=== PATIENT | male | born 1960 | race Caucasian/White ===

== ENCOUNTER 2023-09-17 11:35 | Outpatient (CLI) | payer OTHER ==
--- NOTE | 2023-09-18 19:47 | XRAY Report ---
PROCEDURE: Chest 2V INDICATIONS: CHEST PAIN TECHNIQUE: 2 views of the chest were obtained. COMPARISON: None. FINDINGS: Surgical changes and devices: None. Lungs and pleura: No pleural effusions or pneumothorax. Lungs are clear. Mediastinum: Mediastinal contours appear normal. Heart size is normal. Bones and chest wall: No suspicious bony lesions. Overlying soft tissues appear unremarkable. IMPRESSION: Normal two-view chest x-ray Reviewed by: Vasiliy Sheppard MD on 09/18/2023 6:45 PM [facility] Approved by: Vasiliy Sheppard MD on 09/18/2023 6:45 PM [facility] Station ID: [id number]
== END 2023-09-17 11:36 | disposition home or self-care (01) ==
LOC: DI 11:35
PROVIDERS: ATTEND Internal Medicine
DX: R07.9 Chest pain, unspecified (principal)

== ENCOUNTER 2023-10-06 19:38 | Emergency (ER) | payer OTHER ==
[2023-10-06 20:31] VITALS: BP 148/88; O2SAT 100
[2023-10-06] MEDS: LIDOCAINE 1%-EPI 1:100000 20 ML MDV SUBQ STA (21:31)
[2023-10-06] MEDS: KETOROLAC 15 MG/ML VIAL IVP STA (22:00)
[2023-10-06] MEDS: LIDOCAINE-EPINEPH-TETRACAINE 3 ML SYRINGE TOP STA (22:05)
--- NOTE | 2023-10-06 22:32 | ED Physician Documentation ---
History of Present Illness - Stated complaint Stated Complaint: FOREHEAD LAC - Chief complaint Chief Complaint: Laceration - History obtained from History obtained from: Patient - History of Present Illness Timing: Prior to arrival - Additonal information Additional information: Patient is a 62-year-old male coming into the emergency department with abrasion to forehead. Patient scraped his forehead on a cupboard and had persistent bleeding prior to coming to the emergency department. Patient did not hit his head or lose consciousness. Patient's last tetanus was within the last 5 years. He is not on any blood thinners. PD PAST MEDICAL HISTORY - Past Medical History Past Medical History: Yes Cardiovascular: High cholesterol Respiratory: None Neuro: None Endocrine/Autoimmune: None GI: None : None HEENT: None Psych: None Musculoskeletal: None Derm: None - Past Surgical History Past Surgical History: No - Present Medications Home Medications: Ambulatory Orders Medication Instructions Recorded Confirmed amLODIPine [Norvasc] 5 mg PO DAILY 10/06/23 - Allergies Allergies/Adverse Reactions: Allergies Allergy/AdvReac Type Severity Reaction Status Date / Time No Known Drug Allergies Allergy Verified 10/06/23 21:13 - Social History Does the pt smoke?: No Smoking Status: Never smoker Does the pt drink ETOH?: No Does the pt have substance abuse?: No - Immunizations Immunizations are current?: Yes - POLST Patient has POLST: No PD ED PE NORMAL - Vitals Vital signs reviewed: Yes - General General: Alert and oriented X 3 - HEENT HEENT: Other (Abrasion approximately 3 cm in length with no significant depth or with 2 anterior forehead. Minimal bleeding on arrival. No signs of vascular injury. No signs of infection including redness swelling discharge from the wound. No significant contamination on examination.) - Neck Neck: Supple, no meningeal sign, C-Spine cleared by NEXUS criteria - Cardiac Cardiac: RRR, No murmur, No gallop, No rub - Respiratory Respiratory: No respiratory distress, Clear bilaterally - Neuro Neuro: Alert and oriented X 3, carbon plant grinder 2-12 intact Eye Opening: Spontaneous Motor: Obeys Commands Verbal: Oriented GCS Score: 15 Results - Vitals Vitals: Oxygen O2 Source Room air Procedures - Laceration (location) Face Anterior Length in cm: 2 Wound type: Linear Neurovascular status: Sensory intact, Motor intact, Vascular intact Anesthesia: LET Wound preparation: Irrigated copiously NS Skin layer closure: Dermabond Other: Patient tolerated well, Dressing applied, Tetanus UTD PD Medical Decision Making - ED course Complexity details: reviewed old records, re-evaluated patient ED course: Patient is a 62-year-old male presenting to the emergency department after scraping his head on a cupboard prior to coming in. Patient did not lose consciousness did not sustain significant injury to his forehead. Patient has persistent minimal bleeding to anterior head with [address] Wound was cleaned thoroughly here in emergency department. Patient had let applied due to persistent pain with cleaning and examination. Given minimal bleeding that persists after cleaning and given area on anterior forehead concern for persistent bleeding at home will cover with Dermabond here. Dermabond was a pplied shortly after and patient tolerated this well. Discussed with patient Dermabond will slowly fall off on its own. Water can run over it but do not scrub it do not put topical antibiotic or Vaseline on it. Watch for signs of infection return to emergency department with any of the symptoms. Follow-up with PCP in 2 weeks for wound recheck. Departure - Departure Disposition: 01 Home, Self Care Clinical Impression: Abrasion head Condition: Good Instructions: ED Abrasion Comments: Come back for any signs of infection which would include: Redness, swelling, drainage, increased pain, or fevers. You can wash it soap and water. Keep it covered and moist. Avoid any topical antibiotic or Vaseline on the wound as it will cause the Dermabond to fall off. Do not scrub the area Dermabond will fall off on its own follow-up with your PCP or nurses office for reevaluation in 1 to 2 weeks for wound recheck. Forms: PCP List Discharge Date/Time: 10/06/23 22:41
== END 2023-10-06 22:41 | disposition home or self-care (01) ==
LOC: ED 19:38
DX: S00.81XA Abrasion of other part of head, initial encounter (principal); W22.8XXA Striking against or struck by other objects, initial encounter
CPT/HCPCS: 12011